=== PATIENT | male | born 1950 | race Caucasian/White ===

== ENCOUNTER → 2024-05-11 | Outpatient (CLI) | payer MEDICARE ==
--- NOTE | 2024-05-12 23:46 | PE ---
EXAMINATION TYPE: PET CT fusion skull to thigh DATE OF EXAM: 05/11/2024 CLINICAL INDICATION:Male, 73 years old with history of C61 MALIGNANT NEOPLASM OF PROSTATE; TECHNIQUE: Following the intravenous administration of 5.08 mCi of Ga-68 Illuccix (PSMA), whole bod y images are performed from the skull base to the midthigh. Images are reviewed on the computer in t he coronal, axial, and sagittal planes. Reconstructed rotating images are created on independent wor kstation and reviewed on the computer. A non-contrast CT is performed in conjunction with the PET s can. CT DLP: 757.92 mGycm, Automated exposure control for dose reduction was used. COMPARISON: CT None, PET/CT None, MRI: None FINDINGS: Mediastinal SUV mean is 2.0. Hepatic parenchyma SUV mean is 7.0. SKULL BASE AND NECK: No suspicious radiotracer activity. CHEST, MEDIASTINUM, AND HILAR REGION: Patchy bilateral lower lobe consolidative opacities. Demonstrates a maximum SUV of 7.0. ABDOMEN AND PELVIS: Posttreatment changes of the prostate gland with brachytherapy seeds. Demonstrates a maximum SUV of 4 .4. Ill-defined right hepatic lobe hypodense 1.5 cm lesion with a maximum SUV of 20.3. MUSCULOSKELETAL STRUCTURES: Multiple radiotracer active lesions identified within the osseous structures including the clivus, sp ine, ribs, pelvic bones, bilateral femurs, and left scapula. Examples include a left posterior iliac bone expansile 4.3 x 2.4 cm lesion with a max SUV of. Clival radiotracer uptake with a maximum SUV of 35.9. Left scapula radiotracer uptake with a maximum SUV of 17.3. Expansile left posterior sixth rib heterogenous sclerotic lesion with a maximum SUV of 7.9. Left posterior T8 elements with a maximum SUV of 12.8. T9 vertebral body with a maximum SUV of 14.9. Left posterior eighth rib expansile sclerotic lesion with a maximum SUV of 33.9. Right anterior fifth rib with a maximum SUV of 34.7. T2 sclerotic lesion with a maximum SUV of 4.3. T11 sclerotic lesion with a maximum SUV of 3.7. L2 sclerotic lesion with a maximum SUV of 3.1. Right posterior iliac bone sclerotic lesion with a maximum SUV of 29.7. Right inferior pubic ramus with a maximum SUV of 14.5. Right proximal femur with a maximum SUV of 36.6. OTHER CT: Atherosclerotic calcification of the intracranial vasculature. Aplasia of the right frontal sinus. Nasal septal deviation to the left. Subcentimeter nodule within the right thyroid lobe. Cardi omegaly. Small coronary artery calcifications. Small aortic valvular calcifications. Pelvic phlebolit hs. Remote left-sided rib fractures. No inguinal bilateral hernias. IMPRESSION: 1. Posttreatment changes of the prostate gland with radiotracer levels below background. 2. Multiple osseous lesions demonstrating intense radiotracer activity consistent with metastasis. A few demonstrate more sclerotic appearance with radiotracer activity below background and probably re present treated metastasis. 3. Right hepatic dome 1.5 cm lesion that demonstrates moderate radiotracer activity. This is indeter minate and can be seen with a variety of etiologies such as metastasis versus hepatocellular carcinom a versus other malignant or benign neoplasms. Correlation prior imaging is recommended. Consider furt her evaluation with MR abdomen liver mass protocol. 4. Patchy bilateral lower lobe consolidative opacities which may represent atelectasis versus pneumo magi in the appropriate clinical setting. [facility], , 05/12/2024 11:44 PM
== END | disposition home or self-care (01) ==
LOC: RADPETMAIN 14:06
PROVIDERS: ATTEND Internal Medicine Hematology & Oncology
DX: C61 Malignant neoplasm of prostate
CPT/HCPCS: 78815